=== PATIENT | male | born 2000 | race Caucasian/White ===

== ENCOUNTER 2020-08-07 12:01 | Emergency (ER) | payer BC, SELFPAY ==
[2020-08-07 12:17] VITALS: BP 143/95; PULSE 84; RESP 18; TEMP 36.9; O2SAT 99; BMI 26.7
--- NOTE | 2020-08-07 12:37 | HMH.EDUTC ---
[facility] [place] Disposition Clinical Impression: Otitis media Qualifiers: Otitis media type: unspecified Laterality: left Qualified Code(s): H66.92 - Otitis media, unspecified, left ear Disposition: Home, Self-Care Condition on Discharge: Good Instructions: Sinusitis, Middle Ear Infection, DI for Sinusitis Additional Instructions: *Monitor Temp, Over the counter Motrin or Tylenol as directed/as needed Tylenol every 4 hours and Motrin every 6 hours (as long as your family doctor has told you that you can take it) for fever or pain. and straight to ER if unable to lower temp less than 101.0 after medication given *Warm salt water gargles may help to soothe the throat *Throat Lozenges *Warm fluids like tea with honey may help to soothe the throat *Sleep elevated *Humidifier/Vaporizer *Flonase 2 sprays in each nostril daily but be aware that it may take 2-3 days before you notice improvement Take medication as prescribed Follow up IMMEDIATELY for new or worsening symptoms or no Noticeable improvement over the next 48-72 hours. 911 for difficulty breathing or swallowing Prescriptions: Amoxicillin [Amoxicillin 875MG Tab] 875 mg PO Q12H #20 tab Transmission Status: Received by [id number] Referrals: Clemente Thompson [Primary Care Provider] - As needed Time of Disposition: 12:55 Medical Decision Making - Gavino Inquiry Pt receiving controlled substance: No Gavino was queried for this patient: No Vital Signs: 08/07/20 12:17 Temperature 98.4 F Temperature Source Oral Pulse Rate [Radial] 84 Respiratory Rate 18 Blood Pressure [Right Arm] 143/95 H Blood Pressure Mean [Right Arm] 111 Blood Pressure Source [Right Arm] Automatic Cuff Blood Pressure Position [Right Arm] Sitting 02 Sat by Pulse Oximetry 99 Oxygen Delivery Method Room Air Orders (Tests/Meds): ED MEDICATIONS Discontinued Medications Generic Name Dose Route Start Last Admin Trade Name Freq PRN Reason Stop Dose Admin Methylprednisolone Sodium Succinate 125 mg 08/07/20 12:52 08/07/20 12:58 Methylprednisolone Sod Succ 125mg Vial IM 08/07/20 12:53 125 mg ONCE ONE Administration [facility] [place] HPI - General Stated complaint: sinus both ears Time Seen by Provider: 08/07/20 12:37 Mode of Arrival: Ambulatory Source of Information: Patient Limitations: No Limitations Description of Symptoms (Recalled from Triage Doc. by RN): sinus pressure and ear pain HEENT Symptoms (Recalled from RN notes): Yes Resp Symptoms (Recalled from RN notes): No Skin Symptoms (Recalled from RN notes): No MS Symptoms (Recalled from RN notes): No Functional Status (Recalled from RN notes): wnl - History of Present Illness Provider Complaint: Patient states that he has been having sinus pain and pressure along with pain and pressure in both ears States that he has been having symptoms for over a week and continued to get worse States that today was still having symptoms so he come in - Related Data Previous Rx's Medication Instructions Recorded Amoxicillin [Amoxicillin 875MG 875 mg PO Q12H #20 tab 08/07/20 Tab] Allergies Allergy/AdvReac Type Severity Reaction Status Date / Time No Known Allergies Allergy Verified 03/20/18 10:44 - Worker's Comp Is this a Worker's Comp case?: No [facility] History - Hepatitis A Screen Drug use history?: No High risk sexual behaviors?: No History of sexually transmitted infection?: No Currently employed?: No Childcare worker?: No Do you have indoor plumbing?: Yes Do you have electricity?: Yes Attestation statement:: This patient has been screened for Hepatitis A risk factors. I have reviewed the patient's past medical history: Yes - Social History Alcohol Intake: never Occupational Status: other ROS Obtained: Yes All systems reviewed & no additional complaints, Yes Systems reviewed as appropriate & no additional complaints - Constitutional Constitutional: Reports system reviewed and no additional co
[2020-08-07 13:22] VITALS: BP 143/95; PULSE 84; RESP 18; TEMP 36.9; O2SAT 99
== END 2020-08-07 13:22 | disposition home or self-care (01) ==
PROVIDERS: Emergency Provider Nurse Practitioner; PCP Pediatrics
DX: H66.92 Otitis media, unspecified, left ear (principal)
CPT/HCPCS: 96372; 99201

== ENCOUNTER 2024-09-11 19:17 | Emergency (ER) | payer BC, SELFPAY ==
[2024-09-11 19:31] VITALS: BP 149/99; PULSE 106; RESP 18; TEMP 36.7; O2SAT 99; BMI 28.0
--- NOTE | 2024-09-11 19:31 | XR_ITS ---
PROCEDURE INFORMATION: Exam: XR Left Elbow Exam date and time: 09/11/2024 7:47 PM Age: 24 years old Clinical indication: Numbness; Fingers; Left; Additional info: Numb TECHNIQUE: Imaging protocol: Radiologic exam of the left elbow. Views: 3 or more views. Total images: 3 COMPARISON: CR XR HAND LT MIN 3V 09/11/2024 7:47 PM FINDINGS: Bones/joints: No acute fracture, joint dislocation, or joint effusion. No concerning bone lesions or calcifications. Unremarkable joint spaces. Soft tissues: Unremarkable soft tissues. IMPRESSION: Negative left elbow.
--- NOTE | 2024-09-11 19:31 | XR_ITS ---
PROCEDURE INFORMATION: Exam: XR Left Hand Exam date and time: 09/11/2024 7:47 PM Age: 24 years old Clinical indication: Numbness; Fingers; Left; Additional info: Numb TECHNIQUE: Imaging protocol: Radiologic exam of the left hand. Views: 3 or more views. Total images: 3 COMPARISON: CR XR HAND LT MIN 3V 09/11/2024 7:47 PM FINDINGS: Bones/joints: No acute fracture or joint dislocation. No concerning bone lesions or calcifications. Unremarkable joint spaces. Soft tissues: Unremarkable soft tissues. IMPRESSION: Negative left hand.
--- NOTE | 2024-09-11 20:00 | EXP.UTC ---
Discharge Plan Disposition Patient Disposition: Home, Self-Care Condition: Good Prescriptions Prescriptions: New ibuprofen 600 mg tablet 600 mg PO Q6HP PRN (Reason: Moderate Pain) Qty: 20 0RF No Action lisinopril 5 mg tablet 5 mg PO DAILY Referrals Follow up/Referrals: Clemente Oliveira MD [Primary Care Provider] - See instructions Activity Restrictions/Add. Instructions Additional Instructions/Restrictions: Follow up with your Family Doctor for furhter treatment and evaluation Take medication as prescribed Return if needed Straight to ER if any life threatening symptoms Do not rest arm on tables, arm rest etc See discharge instructions to help with discomfort Clinical Impressions Clinical Impression: Cubital tunnel syndrome on left Instructions Patient Instructions: Cubital Tunnel Syndrome, DI for Cubital Tunnel Syndrome Print Language Print Language: Amharic Discharge ED Provider: Pati Dent [facility] [place] General Stated complaint: Left hand numb Mode of Arrival: Ambulatory Source of Information: Patient Time Seen by Provider: 09/11/24 20:03 Description of Symptoms (Recalled from Triage Doc. 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 States for about 2 weeks on and off he has been having a tingling numb like sensation in his left ring and little finger worse if he rests his elbow on a table and pushes on his elbow, denies known injury States today it was still bothering him so he came in to get it checked Related Data Home Medications ?Medication ?Instructions ?Recorded ?Confirmed lisinopril 5 mg tablet 5 mg PO DAILY 09/11/24 09/11/24 Previous Rx's ?Medication ?Instructions ?Recorded ibuprofen 600 mg tablet 600 mg PO Q6HP PRN Moderate Pain 09/11/24 #20 tabs Allergies Allergy/AdvReac Type Severity Reaction Status Date / Time No Known Allergies Allergy Verified 03/20/18 10:44 Worker's Comp Is this a Worker's Comp case?: No [facility] Disclaimer: The information contained in this section may have been updated after the patient was seen, as this information can be updated by other users. Social History Smoking Status: Unknown if ever smoked alcohol intake: never current occupational status: other ROS Obtained: Yes All systems reviewed & no additional complaints except as documented and Yes Systems reviewed as appropriate & no additional complaints except as documented Eyes Eyes: Reports system reviewed and no additional complaints, except as documented and Reports as per HPI ENT Ears, Nose, Mouth, and Throat: Reports system reviewed and no additional complaints, except as documented and Reports as per HPI Cardiovascular Cardiovascular: Reports system reviewed and no additional complaints, except as documented and Reports as per HPI Respiratory Respiratory: Reports system reviewed and no additional complaints, except as documented and Reports as per HPI Gastrointestinal Gastrointestingal: Reports system reviewed and no additional complaints, except as documented and as per HPI Musculoskeletal Musculoskeletal: Reports system reviewed and no additional complaints, except as documented, Reports as per HPI and Reports other Comments: tingling/numb feeling on and off in outside of left hand and in left ring and little finger worsens with resting elbow on table or pushing on elbow, denies known injury Physical Exam General General appearance: alert and in no apparent distress Respiratory Respiratory exam: Present normal lung sounds bilaterally; Absent respiratory distress or wheezes Cardiovascular Cardiovascular exam: Present regular rate, normal rhythm and normal heart sounds Expanded Upper Extremity Exam Left: Elbow exam: Present normal inspection and full ROM; Absent tenderness, swelling, abrasion, laceration, ecchymosis, deformity or erythema Forearm/Wrist exam: Present normal inspection and full ROM Hand exam: Present other (reports tingling like feeling in his left ring and little finger worse after working ); Absent tenderness, swelling, ecchymosis, dislocation or erythema Vascular exam: Normal capillary refill and radial pulse Neurological Exam Neurological exam: Present alert and oriented X3 Medical Decision Making Medical Records Screening: Per USPSTF and CDC recommendations, given the prevalence of disease in our region, it is our hospital?s policy to screen for HIV and viral Hepatitis for all patients aged 18 and over and those with ongoing risk factors. Gavino Inquiry Pt receiving controlled substance: No Gavino was queried for this patient: No Vital Signs: 09/11/24 19:31 Temperature 98.0 F Temperature Source Oral Pulse Rate [Left Radial] 106 H Respiratory Rate 18 Blood Pressure [Left Arm] 149/99 H Blood Pressure Mean [Left Arm] 115 02 Sat by Pulse Oximetry 99 Orders (Tests/Meds): ORDERS Category Date Time Status Elbow XR left mininum 3 views [XR elbow LT min 3V] Stat Exams 09/11/24 19:31 Taken XR hand LT min 3V Stat Exams 09/11/24 19:31 Taken Radiology Data #1: Image(s): Hand Image Reviewed: Yes I have reviewed radiologist's interpretation IMPRESSION: Negative left hand. #2: Image(s): Elbow Image Reviewed: Yes I have reviewed radiologist's interpretation IMPRESSION: Negative left elbow.
[2024-09-11 20:44] VITALS: BP 149/99; PULSE 106; RESP 18; TEMP 36.7
== END 2024-09-11 20:47 | disposition home or self-care (01) ==
PROVIDERS: Emergency Provider Nurse Practitioner; PCP Pediatrics
DX: G56.22 Lesion of ulnar nerve, left upper limb (principal)
CPT/HCPCS: 73080; 73130; 99213; G0381